=== PATIENT | male | born 1945 | race Caucasian/White ===

== ENCOUNTER → 2016-10-28 | Outpatient (CLI) | payer MEDICARE ==
[~2016-10-28] MED LIST: CARV6.252 PO; DIGO0.25 PO; ENOX150P SQ; EXTR500C PO; GUAI1SOL PO; OCEA0.653 EACH NARE; PRED10 PO; ROBIDM5S PO; SYNT125T PO; XALA0.00 EACH EYE; ZOFR4TAB PO
[2016-10-28 16:16] LABS: BICARBONATE 28.9 MEQ/L (21.0-32.0); POTASSIUM 4.8 MEQ/L (3.5-5.1)
== END ==
LOC: OLAB 14:36
PROVIDERS: ATTEND Physician Assistant Medical
DX: I50.21 Acute systolic (congestive) heart failure (principal); I48.0 Paroxysmal atrial fibrillation; I47.2 Ventricular tachycardia
CPT/HCPCS: 36415; 80048; 83880